=== PATIENT | female | born 1965 | race Caucasian/White ===

== ENCOUNTER 2018-12-13 19:28 | Inpatient (IN) ==
[2018-12-13 20:08] LABS: BASO# 0.04 X1000 (0.0-0.2); BASO% 0.4 % (0.0-0.8); EOS# 0.11 X1000 (0.0-0.7); EOS% 1.1 % (0.0-10.0); HEMATOCRIT 32.5 % (37.0-47.0); HEMOGLOBIN 10.6 g/dL (12.0-16.0); IMM GRAN# 0.02 X1000 (0.0-0.04); IMM GRAN% 0.2 % (0.0-0.5); LYMPH# 4.48 X1000 (1.2-3.4); MCHC 32.6 g/dL (33-37); MCV 88.8 FL (81-99); MONO# 0.54 X1000 (0.11-0.59); MONO% 5.2 % (1.7-9.3); MPV 10.1 FL (7.4-10.4); NEUT# 5.23 X1000 (1.4-6.5); NEUT% 50.1 % (42.2-75.2); PLT 332 X1000 (130-400); RBC 3.66 XMIL (4.2-5.4); RDW 13.5 % (11.5-14.5); WBC 10.42 X1000 (4.8-10.8)
[2018-12-13] MEDS ORDERED: NS 1,000 ML IV ONE ×2 (20:08→22:05)
[2018-12-13 20:16] LABS: INR 0.99; PROTIME 13.9 Seconds (11.0-16.0)
[2018-12-13 20:17] LABS: PTT 24.6 Seconds (22.3-41.8)
[2018-12-13 20:22] LABS: AGAP 11; ALB/GLOB RATIO 1.9; ALBUMIN 3.8 g/dL (3.5-5.0); ALKALINE PHOSPHATASE 84 U/L (32-104); BUN 25 mg/dL (8-22); CALCIUM 8.7 mg/dL (8.8-10.2); CHLORIDE 105 mmol/L (98-107); COSMO 287; CREATININE 0.6 mg/dL (0.5-0.9); ESTIMATED GFR > 60; GLUCOSE 118 mg/dL (70-104); GOT 15 U/L (10-30); GPT 11 U/L (10-36); POTASSIUM 3.8 mmol/L (3.5-5.1); SODIUM 141 mmol/L (136-145); TCO2 25 mmol/L (25-35); TOTAL BILIRUBIN < 0.15 mg/dL (0.20-1.00); TOTAL PROTEIN 5.8 g/dL (6.3-8.3)
[2018-12-13 21:56] LABS: HEMATOCRIT 27.9 % (37.0-47.0); HEMOGLOBIN 9.1 g/dL (12.0-16.0)
--- NOTE | 2018-12-13 21:56 | Diag Imaging Result Doc PS360 ---
EXAM: CT ANGIOGRAM ABD/PELIVS W/CON HISTORY: GI Bleed after poly removal via colonoscopy tuesday TECHNIQUE: CT angiogram abdomen and pelvis with intravenous contrast. Arteriogram protocol with MIP images. COMPARISON: None. FINDINGS: No calcified gallstones or adjacent inflammation. No focal hepatic abnormality. No splenomegaly. Normal pancreas, adrenal glands, and kidneys. No hydronephrosis. Multiple fluid-filled loops of small bowel and colon. No ascites. There are small mesenteric nodes. No abscess. The urinary bladder is distended and is normal. No aortic aneurysm. Normal takeoff of the celiac artery and superior mesenteric artery. Normal takeoff of each renal artery. No occlusion or stenosis. Normal inferior mesenteric artery. Normal common iliac and external iliac arteries. IMPRESSION: No abscess or free air. This exam was performed using automated exposure control, adjustment of mA or kV according to patient size, and/or use of iterative reconstruction technique. Electronically signed by Delbert Basurto 12/13/2018 9:54 PM
[2018-12-13] MEDS ORDERED: PROTONIX 80 MG in NS 80 ML IV ONE (22:14)
--- NOTE | 2018-12-13 22:44 | PROVIDER DOCUMENTATION ---
This chart was entered by Kaley Thakur Scribe, acting as scribe for Joyce Jhaveri MD. HPI-Abdominal Pain/GI Problem - General Chief Complaint: GI Bleed Stated Complaint: rectal bleeding Time Seen by Provider: 12/13/18 20:15 Source: patient Allergies/Adverse Reactions: Patient Allergies Allergy/AdvReac Type Severity Reaction Status Date / Time No Known Allergies Allergy Verified 03/01/18 16:08 Home Medications: Home Medication List Medication Instructions Recorded Confirmed Last Taken Type Alprazolam [Xanax] 0.25 mg PO DAILY PRN PRN 05/19/14 05/19/14 Unknown History Zolpidem [Ambien] 5 mg PO HS PRN PRN 05/19/14 05/19/14 Unknown History Ketorolac [Toradol] 10 mg PO Q6H PRN PRN #20 tablet 05/20/14 Unknown Rx - History of Present Illness-ABD Nature of Presenting Problems: pt is 53/F presenting to ED w/ rectal bleeding that started today. pt sts that she had a colonoscopy on Tuesday and has has some R sided pain, but no bleeding until today. She sts that she took an 800mg ibuprofen and shortly there after started having extreme gas and then felt as though she had a BM. She went to the bathroom and when she pulled down her underwear they were filled with bright red blood w/ clots, she then sat on the toilet where more blood that was described as "coming out like water" She then felt shaky and hot and thought that she may pass out. She did not, but she then laid down on the bed and had call 911. Pt did have 2 polyps removed during colonoscopy. Abdominal Pain Onset Location: reports: [facility] Pain Radiation: reports: no radiation Quality of Pain: reports: aching Severity in ED: reports: mild Onset/Duration: reports: just prior to arrival, 6 days ago Timing: reports: still present Activities at Onset: reports: none Exposure to sick contacts?: No (`) Modifying Factors: improves with: nothing Associated Symptoms: reports: denies symptoms. denies: diarrhea, fatigue, fever /chills, shortness of breath, vomiting Last BM: unsure Dark Stools Present?: reports: bright red blood Rectal Pain: reports: none Emesis Description: reports: none Bruising or Bleeding Gums?: No Similar Symptoms Previously?: No Recently seen or treated by another doctor?: No Review of Systems - Adult - REVIEW OF SYSTEMS - ADULT Constitutional: reports: no symptoms reported. denies: chills, fever Eyes: reports: no symptoms reported Ears, Nose, Mouth & Throat: reports: no symptoms reported Cardiovascular: reports: no symptoms reported. denies: chest pain, edema Respiratory: reports: no symptoms reported Gastrointestinal: reports: abdominal pain (R sided abd pain), rectal bleeding. denies: hematemesis, nausea, vomiting Genitourinary: reports: no symptoms reported Musculoskeletal: reports: no symptoms reported Integumentary: reports: no symptoms reported Neurological: reports: no symptoms reported. denies: dizziness/vertigo, headache/migraines Psychiatric: reports: no symptoms reported Endocrine: reports: no symptoms reported Hematologic/Lymphatic: reports: no symptoms reported Allergic/Immunologic: reports: no symptoms reported All Other Systems: Reviewed and Negative Past History - Adult - PAST MEDICAL HISTORY-ADULT Review of Records: reports: Old Records Reviewed, Nursing Assessment Review, Medications Reviewed, Social history reviewed & non-contributory. Major Childhood Illnesses: reports: denies history Cardiovascular: reports: denies history Respiratory: reports: denies history Gastrointestinal: reports: denies history Obstetrical/Gynecological: reports: denies history Genitourinary: reports: denies history Musculoskeletal: reports: denies history Neurological: reports: denies history Psychiatric: reports: anxiety Endocrine/Immune: reports: denies history Other Conditions: reports: denies history - PRIOR SURGERIES/PROCEDURES Surgical/Procedure History: reports: none - IMMUNIZATION STATUS Childhood Immunizations: See Nurse Assessment Flu Vaccine: See Nurse Assessment - FAMILY HISTORY Family History: reviewed, not pertinent - SOCIAL HISTORY Smoking: quit greater than 1 year Substance Use: none/never Alcohol Use Frequency: never Living Situation: family Physical Exam-General - PHYSICAL EXAM-ADULT Initial Vital Signs Reviewed: Yes - CONSTITUTIONAL General Appearance: appears well, alert, no apparent distress - EYES Eyes: PERRL/EOMI, pink conjunctivae - HEAD, EARS, NOSE, MOUTH & THROAT HENMT: normocephalic/atraumatic, moist mucous membranes, normal ENT inspection, TMs normal - NECK Neck: non-tender, full range of motion, supple, normal inspection - RESPIRATORY Respiratory: chest non-tender, lungs clear, normal breath sounds - CARDIOVASCULAR Cardiovascular: normal peripheral pulses, regular rate, rhythm, no edema - GASTROINTESTINAL (ABDOMEN) Abdominal Exam: normal bowel sounds, soft, tenderness (R sided) - LYMPHATIC Lymphatic: no adenopathy - MUSCULOSKELETAL Back Exam: normal inspection, no CVA tenderness, no vertebral tenderness Extremity: normal range of motion, non-tender, normal gait, normal inspection - SKIN Integumentary: normal color, warm/dry - NEUROLOGIC Neurologic: grossly normal - PSYCHIATRIC Psych/Mental Status: normal mood/affect, normal thought content, normal thought process, oriented x 3 Progress - PLAN OF CARE/RESULTS Progress/Plan/Lab Results: Vital Signs - 8 hr 12/13/18 19:28 Temperature 97.8 F Pulse Rate 80 Respiratory Rate 16 Blood Pressure 90/61 O2 Sat by Pulse Oximetry 100 Laboratory Results - last 24 hr 12/13/18 12/13/18 19:42 19:42 WBC 10.42 RBC 3.66 L Hgb 10.6 L Hct 32.5 L MCV 88.8 MCH 29.0 MCHC 32.6 L RDW Std Deviation 13.5 Plt Count 332 MPV 10.1 Immature Gran % (Auto) 0.2 Neut % (Auto) 50.1 Lymph % (Auto) 43.0 Snyder % (Auto) 5.2 Eos % (Auto) 1.1 Baso % (Auto) 0.4 Immature Gran # (Auto) 0.02 Neut # (Auto) 5.23 Lymph # (Auto) 4.48 H Snyder # (Auto) 0.54 Eos # (Auto) 0.11 Baso # (Auto) 0.04 PT 13.9 INR 0.99 PTT (Actin FS) 24.6 Orders Category Date Time Status IV Insertion ORDERED Care 12/13/18 20:[address] ANGIOGRAM ABD/PELIVS W/CON [CT] Stat Exams 12/13/18 20:08 Ordered CBC WITH ELECTRONIC DIFF [HEME] Stat Lab 12/13/18 19:42 Completed COMPREHENSIVE METABOLIC PANEL [CHEM] Stat Lab 12/13/18 19:42 Received HEMATOCRIT [HEME] Timed Lab 12/13/18 21:00 Uncollected HEMOGLOBIN [HEME] Timed Lab 12/13/18 21:00 Uncollected LIPASE [CHEM] Stat Lab 12/13/18 19:42 Received PROTIME WITH INR [COAG] Stat Lab 12/13/18 19:42 Completed PTT [COAG] Stat Lab 12/13/18 19:42 Completed TYPE & SCREEN [BBK] Stat Lab 12/13/18 19:42 Received 0.9% Sodium Chloride Inj [Ns] 1,000 ml Med 12/13/18 20:08 Active IV 999 mls/hr GI Bleed (possible) Stat Oth 12/13/18 19:59 Ordered EKG [EKG] Stat Ther 12/13/18 20:01 Ordered Result Diagrams: 12/13/18 21:35 12/13/18 19:42 - REASSESSMENT Reassessment #1 Status: unchanged (continued episode of BRBPR with drop in Hb/Hct. slight hypotension but reponsive to fluids. Discussed case wtih GI as documented below and will admit. Discussed case with Dr. Vallejo, Hospitalist who will see and admit pt.) Reassessment #2 Status: worsening (pt became hypotensive with SBP 70, rapidly improved with trendelenburg position and additional IVF. As now hypotensive and Hb 9.1 at last check and likely dropping with transfuse 1Unit PRBC's.) - EKG 1 Time of EKG reading by physician:: 19:42 EKG Read and Signed by:: Joyce Jhaveri EKG Interpretation (*Must complete 3 of following elements*): Normal (Sinus Rhythm, rate 63, no acute st changes, normal axis and intervals) - CT/MRI 1 CT Study: Abdomen Impression: Normal (per radiologist read: "FINDINGS: No calcified gallstones or adjacent inflammation. No focal hepatic abnormality. No splenomegaly. Normal pancreas, adrenal glands, and kidneys. No hydronephrosis. Multiple fluid-filled loops of small bowel and colon. No ascites. There are small mesenteric nodes. No abscess. The urinary bladder is distended and is normal. No aortic aneurysm. Normal takeoff of the celiac artery and superior mesenteric artery. Normal takeoff of each renal artery. No occlusion or stenosis. Normal inferior mesenteric artery. Normal common iliac and external iliac arteries. IMPRESSION: No abscess or free air.") - CONSULTS/PCP/HOSPITALIST Notification #1 *Consult/PCP/Hospitalist*: Dr. Huff, GI Consult Disposition: other (Discussed case would like pt admitted, tranfused if Hb drops below 9, Protonix BID, and 2 tap water enemas in the AM at 0600 and plans colonoscopy in the AM. Protonix ordered.) Departure - Departure Date of Disposition Decision: 12/13/18 Time of Disposition Decision: 22:20 DIAGNOSIS: GI bleed Qualifiers: GI bleed type/associated pathology: unspecified gastrointestinal hemorrhage type Qualified Code(s): K92.2 - Gastrointestinal hemorrhage, unspecified Disposition: ADMITTED INPATIENT 09 Certified Medical Emergency: Emergent Condition: Fair Referrals and Follow-Ups: Misha Rothman MD [Primary Care Provider] - - Critical Care Note This patient required my direct & personal management of CC.: Yes Attestation - Physician/ CARA Attestation Patient care was provided by Advanced Practice Provider:: No The physician spent face to face time with patient:: Yes Advanced Practice Provider documentation review:: Supervising physician onsite and consulted in the evaluation and care of this patient. The physician did have a face to face encounter with the patient. This chart was documented by the indicated scribe, (Kaley Thakur, Gema) and accurately reflects the services I performed and decisions made by me, Joyce Jhaveri MD, as attested by the provider's signature.
[2018-12-13 23:07] LABS: HEMATOCRIT 25.4 % (37.0-47.0); HEMOGLOBIN 8.1 g/dL (12.0-16.0)
[2018-12-13] MEDS ORDERED: BENTYL IM ONE (23:26)
[2018-12-14] MEDS ORDERED: TYLENOL PO PRN (00:39)
[2018-12-14] MEDS ORDERED: ZOFRAN IV PRN (00:39)
[2018-12-14] MEDS: NS 1,000 ML IV SCH ×3 (01:29→13:39)
[2018-12-14] MEDS ORDERED: SODIUM CHLORIDE 0.9% INJ SCH (02:00)
[2018-12-14 02:12] LABS: HEMATOCRIT 29.6 % (37.0-47.0); HEMOGLOBIN 9.6 g/dL (12.0-16.0)
--- NOTE | 2018-12-14 02:16 | HISTORY AND PHYSICAL ---
PCP: Misha Rothman MD REASON FOR ADMISSION: Hematochezia today. HISTORY OF PRESENT ILLNESS: This 53-year-old lady who has no significant past medical history underwent colonoscopy about 5 days ago, performed by Dr. Mariee. During the procedure she had 2 polyps removed. She says she had been doing rather well up until about 5 p.m. She has had some joint pains for which she normally takes tramadol and was trying to switch to Motrin earlier today for her joint pains. After about an hour after taking 800 mg of Motrin she started having profuse bleeding. She has had 3 large volume episodes of hematochezia from around 6 p.m. and one or two in the ER. She estimates she may have passed 2 pints of blood. On a few occasions she has noticed some clots. No dark stools, no vomiting or hematemesis. Admits to having intermittent nausea. Complains of intermittent diffuse abdominal pain which is crampy in nature and usually precedes hematochezia. While she was in the ER she said she started feeling lightheaded and now she is currently in Trendelenburg position. She denies any shortness of breath, chest pain or palpitations, no bleeding from any other orifice. No focal neurological complaints, no headaches. REVIEW OF SYSTEMS: A 12-system review was done and positive findings per HPI. ALLERGIES: None. HOME MEDICATIONS: Have not been reconciled, but she says she was taking tramadol and Motrin in her list. SURGICAL HISTORY: She has had an abdominoplasty and tendon release. FAMILY HISTORY: Lung cancer in her dad, but no bleeding diatheses in the family. SOCIAL HISTORY: Does not smoke, drink or use illicit drugs. 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 LAB WORK: On initial labs white count was 10,000, hemoglobin 10, hematocrit 32. Most recent hemoglobin was 8 and hematocrit 25. Platelet count is 332,000. BUN is 25, creatinine 0.6, glucose 118. Lipase is normal. Calcium 8.7. PT/PTT normal. CT of the abdomen and pelvis shows no abscess or free air. PHYSICAL EXAMINATION: VITAL SIGNS: Blood pressure 90/60, heart rate 82, respirations 16, temperature 97.8, 100% on room air. GENERAL: She is a middle-aged woman who is in Trendelenburg position, not in acute distress. She is A and O x3 with normal mood and affect. HEENT: Head is normocephalic, atraumatic. Eyes: PERRL. EOMI. She is anicteric and not pale. ENT and oropharynx exams are grossly normal. NECK: Supple. No JVD or carotid bruit. No thyromegaly. CHEST: Clear to auscultation. Good air entry in both lung dominique. CARDIOVASCULAR: First and second heart sounds heard. No gallops, murmurs or rubs. Rhythm is regular. ABDOMEN: Full, soft with tenderness confined to the right lower quadrant area and suprapubic area. No rebound or guarding. No mass or organomegaly. Bowel sounds are hyperactive. RECTAL: Exam deferred at this time. EXTREMITIES: The patient has significantly decreased pulses distally in all extremities. Rhythm is regular, symmetrical. NEUROLOGICAL: No gross focal deficits. SKIN: Intact with no breakdown, lesion or erythema. MUSCULAR: Exam is grossly normal. ASSESSMENT: 1. Lower gastrointestinal bleed probably from polypectomy site triggered by nonsteroidal anti- inflammatory drug. 2. Acute hemorrhagic anemia. 3. Blood loss hypotension secondary to #1. PLAN: Patient will be aggressively transfused with crystalloids and with blood products. Hemoglobin and hematocrit will be monitored closely every 6 hours and if hematocrit is less than 25 will transfuse 1 unit or more as needed. Dr. Huff was contacted by the ER physician and he will see the patient in the a.m. for possible colonoscopy. IV PPIs were recommended by Dr. Huff. Patient was told to stay away from any NSAIDs in the near future. cc: MD Misha Santos MD
[2018-12-14 07:21] LABS: HEMATOCRIT 31.4 % (37.0-47.0); HEMOGLOBIN 10.4 g/dL (12.0-16.0); MCH 30.1 PG (27-31); MCHC 33.1 g/dL (33-37); MCV 90.8 FL (81-99); MPV 9.8 FL (7.4-10.4); RBC 3.46 XMIL (4.2-5.4); RDW 13.6 % (11.5-14.5); WBC 10.63 X1000 (4.8-10.8)
--- NOTE | 2018-12-14 07:21 | EKG Report ---
Test Performed on : 12/13/2018 7:38:31 PM Test Reason : GI bleed/Weakness/dizziness Blood Pressure : / mmHG Vent. Rate : 063 BPM Atrial Rate : 063 BPM P-R Int : 128 ms QRS Dur : 094 ms QT Int : 436 ms P-R-T Axes : 047 028 049 degrees QTc Int : 446 ms Normal sinus rhythm. Normal ECG No previous ECGs available Unconfirmed Result
[2018-12-14 07:26] LABS: AGAP 9; BUN 16 mg/dL (8-22); CALCIUM 7.4 mg/dL (8.8-10.2); CHLORIDE 111 mmol/L (98-107); COSMO 281; CREATININE 0.4 mg/dL (0.5-0.9); ESTIMATED GFR > 60; GLUCOSE 100 mg/dL (70-104); POTASSIUM 4.2 mmol/L (3.5-5.1); SODIUM 140 mmol/L (136-145); TCO2 20 mmol/L (25-35)
--- NOTE | 2018-12-14 07:31 | PROGRESS NOTE ---
DATE: 12/14/2018 A 53-year-old, white female patient, admitted with hematochezia. Patient had colonoscopy done 4 or 5 days ago. Complaining of vague right lower quadrant pain which she was describing as muscle pain. Yesterday, the patient took 800 mg of Motrin. Patient did have some nausea, abdominal cramps, started having hematochezia, moderate amount of lower GI bleed. The patient claims she bleed moderate to significant amount of blood. The patient was getting dizzy and lightheaded. The patient came to the emergency room. Evaluated by ER physician. The patient was hypotensive. Her hemoglobin was 8.1. I checked her hemoglobin November of 2018, it was 12.8. Because of significant lower GI bleeding, hypotension, blood-loss anemia, we decided to admit the patient to ICU for further care. The patient is doing fair. She still has mild lower abdominal pain. The patient received 1 unit of packed RBC. GI consult requested. She denied bleeding anywhere else. ADMISSION HISTORY AND PHYSICAL: Noted. OBJECTIVE: Vital Signs: Blood pressure 100/52, pulse 58, respirations 17, temperature normal. Skin: Normal turgor. No rash or petechiae. HEENT: Head atraumatic, normocephalic. [place] conjunctivae. Anicteric sclerae. Extraocular muscle movement normal. Neck: Supple. No JVD. Lungs: Clear. Heart: S1 and S2 heard. Abdomen: Soft. No distention. Mild tenderness right lower quadrant. No guarding or rigidity. Extremities: No cyanosis, clubbing, edema. 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 CONSIDERATION: 1. Lower GI bleed, acute blood loss anemia requiring blood transfusion. 2. History of colonic polyps status post polypectomy a few days ago. 3. Low back pain which is chronic. LABORATORY DATA: Patient's last hemoglobin was. 9.6, hematocrit 29.6. PT/INR 0.99. Electrolytes were fairly benign. Lipase was 26. PLAN: Overall plan discussed with the patient. The patient is going to have a possible colonoscopy and/or sigmoidoscopy today. Will monitor H and H, p.r.n. transfusion. cc: Misha Rothman MD
[2018-12-14] MEDS ORDERED: DIPRIVAN 1% ONE ×2 (07:35→08:00)
[2018-12-14] MEDS ORDERED: FENTANYL ONE (07:37)
[2018-12-14] MEDS ORDERED: NS 1,000 ML ONE (09:14)
[2018-12-14 09:27] LABS: HEMATOCRIT 34.9 % (37.0-47.0); HEMOGLOBIN 11.4 g/dL (12.0-16.0); MCH 29.2 PG (27-31); MCHC 32.7 g/dL (33-37); MCV 89.5 FL (81-99); RBC 3.9 XMIL (4.2-5.4); RDW 13.4 % (11.5-14.5); WBC 9.89 X1000 (4.8-10.8)
[2018-12-14] MEDS: PROTONIX IV SCH ×2 (10:04→20:30)
--- NOTE | 2018-12-14 10:53 | OPERATIVE NOTE ---
PROCEDURE DATE: 12/14/2018 HISTORY AND REASON FOR PROCEDURE: This patient seems to have post polypectomy secondary bleeding from the colon. Medications were all given by Anesthesiology. Patient was monitored before and during the procedure by them, and her condition remains stable. Photos taken from the cecal area. Specimen: None. PROCEDURE: The patient was kept in the left lateral decubitus position. Rectal examination was performed. The anal canal lubricated. The Pentax videoscope was introduced in the rectum and advanced to the cecum. The patient had an old blood present with some reddish blood in through the colon, especially in the left colon, so I had to use a lot of water to wash it off and clean the colon to go beyond that area. In the right colon beginning about the mid transverse colon area, there was no significant blood present. The hepatic flexure was looking normal, and the ascending colon was normal. I eventually reached the polyp and overlying the polyp there was a fairly big eschar present and part of that area had some stool stuck there with the eschar. There was a region where granulation tissue was showing some blood clots. I tried to remove the clot by washing it off, but it was adherent. However, I injected about 2 mL of 1:10,000 solution of epinephrine at the base of that granulation tissue. There was no evidence of any active bleeding going on, and I removed the rest of the air and liquid blood from the patient's colon, and scope was removed from the patient. IMPRESSION: Secondary bleeding from polypectomy site. No significant active bleeding going on. RECOMMENDATION: I will start the patient on a clear liquid diet. I also explained the possibility of Motrin causing partially the cause of the bleeding and also hard stool coming through and irritating that area. I recommended that for about 4 to 5 days she should be on a clear liquid diet. No further transfusion is needed. We should observe her for today and hopefully discharge her tomorrow home, but she has to see me next week before she thinks about going to work. Until she sees me, she should be on full liquid diet. Today I will start her on clear liquid diet. cc: Misha Rothman MD
[2018-12-14 13:23] LABS: HEMATOCRIT 31.9 % (37.0-47.0); HEMOGLOBIN 10.4 g/dL (12.0-16.0); MCH 29.1 PG (27-31); MCHC 32.6 g/dL (33-37); MCV 89.1 FL (81-99); MPV 9.7 FL (7.4-10.4); RBC 3.58 XMIL (4.2-5.4); RDW 13.5 % (11.5-14.5); WBC 8.78 X1000 (4.8-10.8)
[2018-12-14] MEDS ORDERED: AYR NASAL SPRAY NAS PRN (13:31)
[2018-12-14] MEDS ORDERED: GOLYTELY PO ONE (14:00)
--- NOTE | 2018-12-14 14:19 | GASTROENTEROLOGY CONSULTATION ---
DATE: 12/14/2018 REASON FOR CONSULTATION: Lower GI bleed. HISTORY OF PRESENT ILLNESS: Mrs. Collins is a 53-year-old lady who saw me on 11/29/2018, referred from Dr. Rothman's office. At that time, the patient complains of left lower quadrant pain for about 3 weeks. The pain was vague in nature. She had fever of 101. She was seen by the slat basket top maker, and a vaginal ultrasound was done, which was negative. She was found to be having a suspected UTI and was given Macrobid, and her fever got better; however, the pain continued, following which she saw Dr. Rothman, who did some abdominal x-rays and saw that there was a lot of stool in the colon. She had never had a colonoscopy; therefore, she was referred to me for a colonoscopy. On evaluation in the office, I found out that the pain has improved very much, and the constipation also has improved. I did a screening colonoscopy on her on 12/08/2017. She had a fairly large polyp measuring between 1.5 and 2 cm, which was broad-based close to the ileocecal valve in the ascending colon. This was removed by snare cautery polypectomy. After the polypectomy, the area was photographed and the cautery was really good with no evidence of any bleeding. There was another polyp in the hepatic flexure, which was removed by biopsy forceps. She went home, comfortable with no symptoms. She ate normally, and there was no significant abdominal pain of any kind; however, yesterday she started passing a large amount of blood in her stool, according to her and her . She became slightly dizzy. It started around 5 p.m. yesterday. She took Motrin earlier that day for joint pain. About an hour after taking 800 mg of Motrin, she started having this bleeding. She had 3 large-volume hematochezia at about 6 p.m. When she was brought to the ER, she also had 2 bowel movements in the emergency room. She received 2 units of blood transfusion overnight, and she felt better. This morning, there was no significant bleeding; however, she got a tap water enema for preparation for colonoscopy. That had some blood in it. 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 Her condition became stable when I saw her in the morning. PAST MEDICAL HISTORY: No history of hypertension or diabetes. She has history of hypercholesterolemia. She has some joint pain especially in the wrist. PAST SURGICAL HISTORY: Abdominoplasty, tendon release from the right wrist. FAMILY HISTORY: There is history of diverticulosis for her aunt. Father had lung cancer. There is history of hypertension in the family. SOCIAL HISTORY: Patient does not smoke now. She is a former smoker. Never drank alcoholic beverages. She is . She has 2 children. 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 GASTROINTESTINAL REVIEW OF SYSTEMS: Appetite had been really good. There had not been any significant abdominal pain, nausea, or vomiting. Rectal bleeding just started about 5 p.m. PHYSICAL EXAMINATION: General: The patient is alert, oriented x3. Vital Signs: The pulse is 80 per minute, respiratory rate is 16, blood pressure is 111/70, and O2 saturation is 98%. She does not seem to be any acute distress. She looks pale. Skin: Warm and dry. Mucous membranes are moist. Neck: Supple. There is no thyromegaly. Cardiac: Both heart sounds are heard. Rhythm is regular. I could not hear any murmur. Lungs: Clear to percussion and auscultation. Abdomen: Soft. Nontender. No masses felt. Bowel sounds are heard. Extremities: Free of any edema. LABORATORY DATA: On arrival at the hospital, her hemoglobin was 8.1, hematocrit 25.4. After receiving 2 units of blood transfusion, hemoglobin is 7.4, hematocrit. 34.9. The sodium is 140, potassium 4.2, chloride 111, CO2 is 20, BUN is 15, creatinine is 0.4, glucose is 100, calcium is 7.4, AST is 15, ALT is 11, total protein is 5.8, albumin 3.3. Lipase is 16. IMPRESSION: Acute lower gastrointestinal bleed secondary to post polypectomy. RECOMMENDATION: The patient's condition is stable. She already received an enema; therefore, I will do a colonoscopy. I have explained the procedure of colonoscopy with benefit and risks, in particular, risk of perforation, hemorrhage, and infection. If the patient has any lesion, which could contribute to bleeding such as a blood vessel, I will do endoscopic therapy. The patient understood this, and she agreed for it. cc: Misha Rothman MD
[2018-12-14 17:38] LABS: HEMATOCRIT 36.7 % (37.0-47.0); MCH 29.4 PG (27-31); MCHC 32.7 g/dL (33-37); MPV 9.8 FL (7.4-10.4); RBC 4.08 XMIL (4.2-5.4); RDW 13.6 % (11.5-14.5); WBC 8.8 X1000 (4.8-10.8)
[2018-12-14 21:59] LABS: HEMOGLOBIN 10.5 g/dL (12.0-16.0); MCH 29.4 PG (27-31); MCHC 32.8 g/dL (33-37); MCV 89.6 FL (81-99); RBC 3.57 XMIL (4.2-5.4); RDW 13.5 % (11.5-14.5); WBC 7.62 X1000 (4.8-10.8)
[2018-12-15] MEDS: NS 1,000 ML IV SCH (03:27)
[2018-12-15 05:04] VITALS: BP 107/64
[2018-12-15 07:11] LABS: AGAP 10; ALB/GLOB RATIO 1.8; ALBUMIN 3.2 g/dL (3.5-5.0); ALKALINE PHOSPHATASE 64 U/L (32-104); BUN 9 mg/dL (8-22); CALCIUM 8.6 mg/dL (8.8-10.2); CHLORIDE 108 mmol/L (98-107); COSMO 281; CREATININE 0.6 mg/dL (0.5-0.9); ESTIMATED GFR > 60; GLUCOSE 91 mg/dL (70-104); GOT 12 U/L (10-30); GPT 8 U/L (10-36); POTASSIUM 3.5 mmol/L (3.5-5.1); SODIUM 142 mmol/L (136-145); TCO2 24 mmol/L (25-35)
[2018-12-15 07:17] LABS: BASO# 0.02 X1000 (0.0-0.2); BASO% 0.3 % (0.0-0.8); EOS# 0.14 X1000 (0.0-0.7); HEMATOCRIT 32.1 % (37.0-47.0); HEMOGLOBIN 10.4 g/dL (12.0-16.0); LYMPH# 2.62 X1000 (1.2-3.4); MCH 29.4 PG (27-31); MCHC 32.4 g/dL (33-37); MCV 90.7 FL (81-99); MONO# 0.54 X1000 (0.11-0.59); MONO% 7.8 % (1.7-9.3); NEUT# 3.57 X1000 (1.4-6.5); NEUT% 51.9 % (42.2-75.2); PLT 228 X1000 (130-400); RBC 3.54 XMIL (4.2-5.4); RDW 13.6 % (11.5-14.5); WBC 6.89 X1000 (4.8-10.8)
--- NOTE | 2018-12-15 07:25 | PROGRESS NOTE ---
DATE: 12/15/2018 SUBJECTIVE: Ms Collins is doing better. She had dull headache yesterday. No major bleeding. No fever or chills. No nausea or vomiting. The patient did have vague abdominal pain yesterday. GI consult and operative note reviewed. OBJECTIVE: Vital signs: Noted. Neck: Supple. No JVD. Lungs: Bilateral good air entry present. Cardiovascular: S1 and S2 heard. Abdomen: Soft, nontender. Bowel sounds present. Central nervous system: Alert, awake, able to move all 4 limbs. LABORATORY DATA: Pending. CONSIDERATION: Gastrointestinal bleed from the post polypectomy site, acute blood-loss anemia, headache. A.m. blood work is pending. Clinically patient is doing better. Encouraged her to stay on clear liquid and then go to full liquid diet until she sees the community health planning director. Monitor blood pressure at home. Avoid NSAID. After Dr. Mariee sees her, will discharge patient home. cc: Misha Rothman MD
[2018-12-15] MEDS: PROTONIX IV SCH (08:52)
--- NOTE | 2018-12-15 11:19 | PROGRESS NOTE ---
DATE: 12/15/2018 SUBJECTIVE: This patient is admitted with lower GI bleeding secondary to a polypectomy which was done on last Tuesday. She was admitted on Tuesday with GI bleeding. Yesterday morning a colonoscopy was performed, and control of hemorrhage was done at the site where the polypectomy was done. That site revealed a small blood clot with granulation tissue and remaining area with scab formation. The patient denies any rectal bleeding since last night and into this morning. She has no abdominal pain. No symptoms. She is tolerating a clear liquid diet. Today, we will advance her to a full liquid diet. She is desirous of going home. 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 Today's blood sugar revealed that the WBC count is 6.89, hemoglobin 10.4, and hematocrit 32.1 which is similar to that of yesterday. OBJECTIVE: The vital signs are stable. Her blood pressure is 107/64, pulse 75 per minute, respiratory rate is 90, and temperature is 98.5 degrees. Abdominal examination is unremarkable. RECOMMENDATIONS: 1. I gave the message to Lorna that she could be discharged home. She should not use any nonsteroidal anti-inflammatory agents for the next 2 weeks. 2. She should be on full liquid diet until she sees me back in the office on Tuesday. At that time, I will discuss the biopsy results with her. Hopefully, that will be available. I checked with the pathology today, and still it is not available by Tuesday. They said that the final report will be out. cc: Misha Rothman MD
== END 2018-12-15 12:06 | disposition home or self-care (01) | DRG 920 ==
LOC: SUPCPDRO → ED 19:28 → SUATTDRO 19:29 → 3S 19:29 → ICU 12-14 00:48 → 3N 12-14 15:23
PROVIDERS: ADMIT Internal Medicine; ATTEND Internal Medicine
CPT/HCPCS: 36430; 74174; 80048; 80053; 83690; 85014; 85018; 85025; 85027; 85610; 85730; 86850; 86900; 86901; 86920; 93005; 96361; 96365; 99285; A9270; C9113; J2405; J3010; J7030; P9016; Q9967; S0164